=== PATIENT | female | born 1955 | race Caucasian/White ===

== ENCOUNTER → 2017-11-13 | Outpatient (CLI) | payer OTHER ==
[~2017-11-13] MED LIST: ALE70 PO; AZIT500T47 PO; BIOT250012 PO; CA C1TAB11 PO; CA C1TAB9 PO; CEF300 PO; CEPH500C24 PO; CHOL200022 PO; CHOL500045 PO; CICL30GE5 TP; CICPT NS; EPIN0.3P15 IM; FLUT16SP20 NS; GLUC-198 PO; LACTAID3000 UNI1 PO; LOR10 PO; LORA-802 PO; LUTE20CA11 PO; LUTE40CA PO; METH454P5 PO; METH4TAB66 PO; MON10 PO; MONT10TA PO; NITR-105 PO; OLO2ODPT OU; OMEG-11 PO; RED600CA15 PO; VITA-131 PO; VITA1CAP46 PO
== END ==
LOC: LAB 11:59
PROVIDERS: ATTEND Nurse Practitioner Primary Care
DX: N30.00 Acute cystitis without hematuria (principal)
CPT/HCPCS: 87088

== ENCOUNTER → 2017-11-18 | Outpatient (CLI) | payer OTHER ==
--- NOTE | 2017-11-18 13:43 | RADIOLOGY IMAGING REPORT ---
FACILITY: [facility] PATIENT NAME: Yulia Longoria : 1955 MR: [id number] V: [id number] EXAM DATE: ORDERING PHYSICIAN: BERNARDINO BAR TECHNOLOGIST: [place] [facility] [place]ulia [place] : 1955 Visit/Account:[id number] Date of Sevice: 11/18/2017 DEXA Scan Clinical history: Osteopenia. Comparison: DEXA scan from 03/06/2016. LUMBAR SPINE: The bone mineral density (BMD) measured from L1-L4 correlates with a Z-score of 0.6 and a T-score of -1.7 which is osteopenia as defined by the World Health Organization. The corresponding risk of frac ture in the lumbar spine is 3-4 times increased compared with a young adult reference population. Th is value has decrease by 1.5 % since the prior study. More than 5% change is considered significant. HIP: Bone mineral density (BMD) measured in the LEFT total hip region correlates with a Z-score -0.1 and a T-score of -1.8 which is osteopenia as defined by the World Health Organization. The corresponding risk of fracture in the hip is 3-4 times increased compared to a young adult reference population. Th is value has decrease by 2.5 % since the prior study. More than 5% change is considered significant. T score left femoral neck -1.7 Bone mineral density (BMD) measured in the Femoral Neck region measures 0.806 g/cm?. IMPRESSION: 1. Lumbar spine: Osteopenia. There has been 1.5% decrease in the bone mineral density since the pre vious exam. 2. Left Total Hip: Osteopenia. There has been 2.5% decrease in the bone mineral density since the p revious exam. 3. Femoral Neck: Bone Mineral Density is 0.806 g/cm? The next DEXA scan of this patient should include the following sites: L1-L4 and the left hip. FRAX? WHO Fracture Risk Assessment Tool link: <http://www.shef.ac.uk/FRAX/tool.jsp?locationValue=9> PLEASE NOTE: 1) The World Health Organization defines low BMD as follows: T-score Normal > -1 Osteopenia < -1 and > -2.5 Osteoporosis < -2.5 without fractures Established osteoporosis < -2.5 with fractures 2) In general, you may wish to consider: Diagnosis Treatment Follow-up DEXA Normal BMD Prevention 2-3 years Osteopenia Prevention/therapy 1-2 years Osteoporosis Therapy Yearly 3) Fracture risk estimated from the T-score is more accurate for vertebral fractures (often spontane ous) than for hip fractures. Report Dictated By: Spring Jeong MD at 11/18/2017 1:36 PM Report E-Signed By: Spring Jeong MD at 11/18/2017 1:38 PM WSN:[email or web address]
== END ==
LOC: RAD 07:12
PROVIDERS: ATTEND Nurse Practitioner Primary Care
DX: M85.80 Other specified disorders of bone density and structure, unspecified site (principal)
CPT/HCPCS: 77080

== ENCOUNTER → 2017-11-20 | Outpatient (CLI) | payer OTHER ==
[~2017-11-20] MED LIST changes: +TRI100 PO
== END ==
LOC: LAB 14:36
PROVIDERS: ATTEND Internal Medicine
DX: R10.2 Pelvic and perineal pain (principal); B96.20 Unspecified Escherichia coli [E. coli] as the cause of diseases classified elsewhere
CPT/HCPCS: 81001; 87077; 87088; 87186; 87210

== ENCOUNTER → 2018-05-09 | Outpatient (CLI) | payer OTHER ==
[~2018-05-09] MED LIST changes: +CHOL200018 PO; -CHOL200022 PO; +ESTR10TA4 VG
--- NOTE | 2018-05-09 15:48 | RADIOLOGY IMAGING REPORT ---
FACILITY: [facility] - [place] PATIENT NAME: Yulia Longoria : 1955 MR: [id number] V: [id number] EXAM DATE: ORDERING PHYSICIAN: IRIS ROMERO TECHNOLOGIST: Location: [facility] Patient: Yulia Longoria : 1955 Visit/Account:[id number] Date of Sevice: 05/09/2018 EXAMINATION: Limited right upper quadrant ultrasound 05/09/2018 10:40 AM HISTORY: Diarrhea. Right upper quadrant pain.. COMPARISON STUDIES: none. FINDINGS: Gallbladder: no stones or sludge. Liver: Negative Common duct: Just under 6 mm. No visible choledocholithiasis. Pancreas: negative Right kidney: negative Upper abdominal aorta and IVC: negative Ascites: none IMPRESSION: 1. CBD caliber is upper normal. No visible cholelithiasis. 2. Otherwise unremarkable study. Report Dictated By: Gasper Kendall MD at 05/09/2018 3:41 PM Report E-Signed By: Gasper Kendall MD at 05/09/2018 3:43 PM WSN:[email or web address]
== END ==
LOC: RAD 02:06
PROVIDERS: ATTEND Internal Medicine
DX: R10.11 Right upper quadrant pain (principal); R19.7 Diarrhea, unspecified
CPT/HCPCS: 76705

== ENCOUNTER → 2018-08-12 | Outpatient (CLI) | payer OTHER ==
[~2018-08-12] MED LIST changes: +BUDE8.43; +DICL100G39 TOP; +PNEU0.5D3 IM; +TURM500C4 PO
== END ==
LOC: RESP 07:04
PROVIDERS: ATTEND Internal Medicine
DX: G47.33 Obstructive sleep apnea (adult) (pediatric) (principal)